=== PATIENT | female | born 1990 | race Caucasian/White ===

== ENCOUNTER 2019-02-13 11:42 | Inpatient (IN) | payer OTHER ==
[2019-02-13 13:22] VITALS: BMI 33.7
--- NOTE | 2019-02-13 15:11 | HP ---
CIWA Score - Admission Criteria [facility] Guidelines: Admission for Medically Managed Detox: Requires at least one of the followin. CIWA greater than 12 2. Seizures within the past 24 hours 3. Delirium tremens within the past 24 hours 4. Hallucinations within the past 24 hours 5. Acute intervention needed for co occurring medical disorder 6. Acute intervention needed for co occurring psychiatric disorder 7. Severe withdrawal that cannot be handled at a lower level of care (continued vomiting, continued diarrhea, abnormal vital signs) requiring intravenous medication and/or fluids 8. Admission ROS S - HPI Chief Complaint: I came for rehab for cocaine and marijuana. Allergies/Adverse Reactions: Allergies Allergy/AdvReac Type Severity Reaction Status Date / Time No Known Allergies Allergy Verified 06/16/18 14:40 History of Present Illness: 28year old female with history of asthma, depression and anxiety who came in for rehab for cocaine and marijuana. Pt is homeless now. Exam Limitations: No Limitations - Ebola screening Have you traveled outside of the country in the last 21 days: No Have you had contact with anyone from an Ebola affected area: No Have you been sick,other than usual withdrawal symptoms: No Do you have a fever: No - Review of Systems Constitutional: Unintentional Wgt. Loss EENT: reports: No Symptoms Reported Respiratory: reports: No Symptoms reported Cardiac: reports: No Symptoms Reported GI: reports: Diarrhea, Poor Appetite : reports: No Symptoms Reported Musculoskeletal: reports: Joint Pain, Muscle Weakness Integumentary: reports: No Symptoms Reported Neuro: reports: Headache Endocrine: reports: No Symptoms Reported Hematology: reports: No Symptoms Reported Psychiatric: reports: Orientated x3, Anxious, Depressed Patient History - Patient Medical History Hx Anemia: Yes (Iron low) Hx Asthma: Yes (Last exacerbation 2010 - (wheeze/cough)) Hx Chronic Obstructive Pulmonary Disease (COPD): No Hx Cancer: No Hx Cardiac Disorders: No Hx Congestive Heart Failure: No Hx Hypertension: No Hx Hypercholesterolemia: No Hx Pacemaker: No HX Cerebrovascular Accident: No Hx Seizures: No Hx Dementia: No Hx Diabetes: No Hx Gastrointestinal Disorders: Yes (acid reflux) Hx Liver Disease: No Hx Genitourinary Disorders: No Hx Sexually Transmitted Disorders: No Hx Renal Disease (ESRD): No Hx Thyroid Disease: No Hx Human Immunodeficiency Virus (HIV): No (5 months ago was negative) Hx Hepatitis C: No Hx Depression: Yes (Denies suicide or violent ideation) Hx Suicide Attempt: No Hx Bipolar Disorder: No Hx Schizophrenia: No - Patient Surgical History Past Surgical History: Yes Hx Neurologic Surgery: No Hx Cataract Extraction: No Hx Cardiac Surgery: No Hx Lung Surgery: No Hx Breast Surgery: No Hx Breast Biopsy: No Hx Abdominal Surgery: Yes (gastric sleeve in 2009) Hx Appendectomy: No Hx Cholecystectomy: No Hx Genitourinary Surgery: No Hx Section: Yes (3 c-sections 2017, 2015, 2009) Hx Orthopedic Surgery: No Hx Hysterectomy: No Anesthesia Reaction: No - PPD History Date: 06/18/18 - Reproductive History Last Menstrual Period: 06/02/18 (irregular) - Smoking Cessation Smoking history: Current every day smoker Have you smoked in the past 12 months: Yes Aproximately how many cigarettes per day: 5 Hx Chewing Tobacco Use: No Initiated information on smoking cessation: Yes 'Breaking Loose' booklet given: 02/13/19 - Substances Abused Cocaine Frequency: Daily Amount used: 2bags Age of first use: 26 Date of Last Use: 02/12/19 Marijuana/Hashish Route: Smoking Frequency: Daily Amount used: 1blunt Age of first use: 28 Date of Last Use: 02/12/19 Family Disease History - Family Disease History Family Disease History: Diabetes: Father, Heart Disease: Grandparent (murmurs/ irreg heart beat, breast cancer), Mother (murmurs/irreg heart beat, asthma), CA : Grandparent, Respiratory: Mother, Brother (asthma) Admission Physical Exam S - Vital Signs Vital Signs: Vital Signs - 24 hr 02/13/19 13:20 Temperature 97.5 F L Pulse Rate 84 Respiratory 20 Rate Blood Pressure 125/76 - Physical General Appearance: Yes: Appropriately Dressed HEENTM: Yes: EOMI, CARLOS, Pharynx Normal Respiratory: Yes: Within Normal Limits Neck: Yes: Within Normal Limits, No masses,lesions,Nodules, Supple Breast: Yes: Breast Exam Deferred Cardiology: Yes: Within Normal Limits, Regular Rhythm, Regular Rate, S1, S2 Abdominal: Yes: Within Normal Limits, Normal Bowel Sounds, Non Tender, Soft Genitourinary: Yes: Within Normal Limits Musculoskeletal: Yes: Muscle Pain Extremities: Yes: Within Normal Limits, Normal Capillary Refill, Normal Range of Motion 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, Fully Oriented, Alert, Motor Strength 5/5 Integumentary: Yes: Within Normal Limits, Normal Color, Dry, Warm Lymphatic: Yes: Within Normal Limits Cleared for Admission [facility] - Detox or Rehab Claeared for Rehab Admission: Yes [facility] Breath Alcohol Content Breath Alcohol Content: 0 Urine Pregancy Test - Result Urine Test Results: Negative - NO Line Present Urine Drug Screen - Results Drug Screen Negative: No Urine Drug Screen Results: THC-Marijuana, ANDI-Cocaine, MTD-Methadone Inpatient Rehab Admission - Rehab Decision to Admit Inpatient rehab admission?: Yes - Initial Determination Are CD services needed?: Yes Free of communicable disease: Yes Not in need of hospitalization: No - Rehab Admission Criteria Previous failed treatment: Yes Poor recovery environment: Yes Comorbidities: Yes Lacks judgement: Yes Patient is meeting Inpatient Rehab admission criteria:: Yes
[2019-02-13] MEDS ORDERED: MAG HYDROX/AL HYDROX/SIMETH 30 ML UNIT-DOSE CUP PO PRN (15:24)
[2019-02-13] MEDS ORDERED: MAGNESIUM CITRATE 300 ML BOTTLE PO PRN (15:24)
[2019-02-13] MEDS ORDERED: P-EPHED 60MG/TRIPROLIDI 2.5MG TABLET PO PRN (15:24)
[2019-02-13] MEDS ORDERED: MAGNESIUM HYDROX 2400MG/30ML ORAL SUSPENSION 30 ML CUP PO PRN (15:24)
[2019-02-13] MEDS ORDERED: guaiFENesin 200 MG/10 ML 10 ML UNIT-DOSE CUPS PO PRN (15:24)
[2019-02-13] MEDS ORDERED: MENTHOL/PHENOL 1 EACH UD MM PRN (15:24)
[2019-02-13] MEDS: THIAMINE HCL 100 MG TABLET (FP) PO SCH (21:06)
[2019-02-13] MEDS: RANITIDINE HCL 150 MG TABLET (FP) PO SCH (21:07)
[2019-02-14] MEDS: LOPERAMIDE HCL 2 MG CAPSULE PO PRN ×2 (06:48→16:12)
[2019-02-14] MEDS: RANITIDINE HCL 150 MG TABLET (FP) PO SCH ×2 (09:50→21:47)
[2019-02-14] MEDS: NICOTINE 14 MG/24 HOURS TOPICAL PATCH TD SCH (09:50)
[2019-02-14] MEDS: PRENATAL VITAMINS W/ FOLIC ACID TABLET (FP) PO SCH (09:50)
[2019-02-14] MEDS: NICOTINE POLACRILEX 2 MG GUM BC PRN ×3 (09:51→21:47)
[2019-02-14 11:36] LABS: HEMATOCRIT 35.6 % (32.4-45.2); HEMOGLOBIN 11.9 GM/dL (10.7-15.3); MCH 27.3 pg (25.7-33.7); MCHC 33.5 g/dl (32.0-36.0); MEAN CELL VOLUME 81.4 fl (80-96); MEAN PLT VOLUME 9.6 fl (7.5-11.1); PLATELET COUNT 240 K/MM3 (134-434); RBC 4.38 M/mm3 (3.60-5.2); RDW 17.6 % (11.6-15.6); WHITE BLOOD COUNT 4.2 K/mm3 (4.0-10.0)
[2019-02-14 11:49] LABS: ALBUMIN 3.5 g/dl (3.4-5.0); ALK PHOS 79 U/L (45-117); ANION GAP 8 MMOL/L (8-16); BILIRUBIN,TOTAL 0.4 mg/dL (0.2-1); BLOOD UREA NITROGEN 13 mg/dL (7-18); CALCIUM 8.6 mg/dL (8.5-10.1); CHLORIDE 112 mmol/L (98-107); CO2 21 mmol/L (21-32); CREATININE 0.7 mg/dL (0.55-1.3); GLUCOSE,RANDOM 87 mg/dL (74-106); POTASSIUM 3.8 mmol/L (3.5-5.1); SGPT/ALT 13 U/L (13-61); SODIUM 142 mmol/L (136-145); TOT PROT 6.5 g/dl (6.4-8.2)
[2019-02-14 11:50] LABS: SGOT/AST 8 U/L (15-37)
[2019-02-14 19:56] LABS: URINE APPEARANCE CLOUDY; URINE BILIRUBIN NEGATIVE (<2.0 mg/dL); URINE COLOR YELLOW; URINE GLUCOSE (UA) NEGATIVE (NEGATIVE); URINE KETONE TRACE (NEGATIVE)
[2019-02-14 19:57] LABS: PH,URINE 5.5 (5.0-8.0); URINE LEUK ESTERASE NEGATIVE (NEGATIVE); URINE NITRITE NEGATIVE (NEGATIVE); URINE PROTEIN NEGATIVE (NEGATIVE); URINE UROBILINOGEN 0.2 mg/dL (0.2-1.0)
[2019-02-14] MEDS: THIAMINE HCL 100 MG TABLET (FP) PO SCH (21:46)
[2019-02-14] MEDS: hydrOXYzine PAMOATE 50 MG CAPSULE (FP) PO PRN (21:47)
[2019-02-15] MEDS: NICOTINE POLACRILEX 2 MG GUM BC PRN ×3 (07:24→21:22)
[2019-02-15] MEDS: PRENATAL VITAMINS W/ FOLIC ACID TABLET (FP) PO SCH (09:04)
[2019-02-15] MEDS: LOPERAMIDE HCL 2 MG CAPSULE PO PRN (09:04)
[2019-02-15] MEDS: RANITIDINE HCL 150 MG TABLET (FP) PO SCH ×2 (09:04→21:18)
[2019-02-15] MEDS: NICOTINE 14 MG/24 HOURS TOPICAL PATCH TD SCH (09:04)
[2019-02-15] MEDS ORDERED: DIPHENOXYLATE 2.5/ATROPINE.025 1 COMBO TABLET PO PRN (13:18)
--- NOTE | 2019-02-15 13:21 | PN ---
S Progress Note Note: PT C/O FREQUENT DIARRHEA WITH ABDOMINAL CRAMP, IMODIUM NOT EFFECTIVE. Vital Signs (72 hours) 02/13/19 02/14/19 02/14/19 13:20 00:30 03:30 Temperature 97.5 F L Pulse Rate 84 Respiratory 20 18 18 Rate Blood Pressure 125/76 02/14/19 02/15/19 02/15/19 07:24 00:30 03:30 Temperature 97.9 F Pulse Rate 58 L Respiratory 18 18 18 Rate Blood Pressure 129/69 02/15/19 07:02 Temperature 97.7 F Pulse Rate 69 Respiratory 18 Rate Blood Pressure 113/75 Laboratory Tests 02/14/19 02/14/19 02/14/19 07:45 07:45 07:45 WBC 4.2 RBC 4.38 Hgb 11.9 Hct 35.6 MCV 81.4 MCH 27.3 MCHC 33.5 RDW 17.6 H Plt Count 240 D MPV 9.6 Sodium 142 Potassium 3.8 Chloride 112 H Carbon Dioxide 21 Anion Gap 8 BUN 13 Creatinine 0.7 Creat Clearance w eGFR 99.64 Random Glucose 87 Calcium 8.6 Total Bilirubin 0.4 AST 8 L ALT 13 Alkaline Phosphatase 79 Total Protein 6.5 Albumin 3.5 Urine Color Urine Appearance Urine pH Ur Specific [place] Urine Protein Urine Glucose (UA) Urine Ketones Urine Blood Urine Nitrite Urine Bilirubin Urine Urobilinogen Ur Leukocyte Esterase RPR Titer Nonreactive 02/14/19 12:10 WBC RBC Hgb Hct MCV MCH MCHC RDW Plt Count MPV Sodium Potassium Chloride Carbon Dioxide Anion Gap BUN Creatinine Creat Clearance w eGFR Random Glucose Calcium Total Bilirubin AST ALT Alkaline Phosphatase Total Protein Albumin Urine Color Yellow Urine Appearance Cloudy Urine pH 5.5 Ur Specific [place] 1.027 Urine Protein Negative Urine Glucose (UA) Negative Urine Ketones Trace H Urine Blood Trace Urine Nitrite Negative Urine Bilirubin Negative Urine Urobilinogen 0.2 Ur Leukocyte Esterase Negative RPR Titer ABDOMEN:SOFT,NT, +BS PLAN:D/C IMODIUM START LOMOTIL 1 TAB PO Q8H
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
[2019-02-15] MEDS: DULoxetine HCL 60 MG CAPSULE.DR PO SCH (14:36)
[2019-02-15] MEDS: THIAMINE HCL 100 MG TABLET (FP) PO SCH (21:18)
[2019-02-15] MEDS: traZODone HCL 100 MG TABLET (FP) PO SCH (21:19)
[2019-02-15] MEDS: QUEtiapine FUMARATE 100 MG TABLET (FP) PO SCH (21:19)
[2019-02-16] MEDS: NICOTINE POLACRILEX 2 MG GUM BC PRN ×3 (10:06→21:08)
[2019-02-16] MEDS: NICOTINE 14 MG/24 HOURS TOPICAL PATCH TD SCH (10:06)
[2019-02-16] MEDS: RANITIDINE HCL 150 MG TABLET (FP) PO SCH ×2 (10:06→21:07)
[2019-02-16] MEDS: DULoxetine HCL 60 MG CAPSULE.DR PO SCH (10:06)
[2019-02-16] MEDS: PRENATAL VITAMINS W/ FOLIC ACID TABLET (FP) PO SCH (10:06)
--- NOTE | 2019-02-16 13:35 | PN ---
[facility] Progress Note Note: NO C/O DIARRHEA VERBALIZED TODAY. CONTINUE TO MONITOR IF TOTALLY RESOLVED, WILL D/C LOMOTIL AFTER 3 DAYS FROM FIRST ORDER. Vital Signs (72 hours) 02/14/19 02/14/19 02/14/19 00:30 03:30 07:24 Temperature 97.9 F Pulse Rate 58 L Respiratory 18 18 18 Rate Blood Pressure 129/69 02/15/19 02/15/19 02/15/19 00:30 03:30 07:02 Temperature 97.7 F Pulse Rate 69 Respiratory 18 18 18 Rate Blood Pressure 113/75 02/16/19 02/16/19 02/16/19 00:30 03:30 07:08 Temperature 97.2 F L Pulse Rate 58 L Respiratory 16 18 18 Rate Blood Pressure 114/73
[2019-02-16] MEDS ORDERED: PT OWN MED DRAWER 7, Y5N ONE (21:05)
[2019-02-16] MEDS: traZODone HCL 100 MG TABLET (FP) PO SCH (21:07)
[2019-02-16] MEDS: THIAMINE HCL 100 MG TABLET (FP) PO SCH (21:07)
[2019-02-16] MEDS: QUEtiapine FUMARATE 100 MG TABLET (FP) PO SCH (21:07)
[2019-02-17] MEDS: RANITIDINE HCL 150 MG TABLET (FP) PO SCH ×2 (09:43→21:24)
[2019-02-17] MEDS: DULoxetine HCL 60 MG CAPSULE.DR PO SCH (09:43)
[2019-02-17] MEDS: PRENATAL VITAMINS W/ FOLIC ACID TABLET (FP) PO SCH (09:43)
[2019-02-17] MEDS: NICOTINE 14 MG/24 HOURS TOPICAL PATCH TD SCH (09:43)
[2019-02-17] MEDS: NICOTINE POLACRILEX 2 MG GUM BC PRN ×2 (09:44→21:25)
[2019-02-17] MEDS: QUEtiapine FUMARATE 100 MG TABLET (FP) PO SCH (21:24)
[2019-02-17] MEDS: THIAMINE HCL 100 MG TABLET (FP) PO SCH (21:24)
[2019-02-17] MEDS: traZODone HCL 100 MG TABLET (FP) PO SCH (21:24)
[2019-02-18] MEDS: DULoxetine HCL 60 MG CAPSULE.DR PO SCH (10:09)
[2019-02-18] MEDS: NICOTINE 14 MG/24 HOURS TOPICAL PATCH TD SCH (10:09)
[2019-02-18] MEDS: NICOTINE POLACRILEX 2 MG GUM BC PRN ×3 (10:10→21:22)
[2019-02-18] MEDS: RANITIDINE HCL 150 MG TABLET (FP) PO SCH ×2 (10:10→21:22)
[2019-02-18] MEDS: PRENATAL VITAMINS W/ FOLIC ACID TABLET (FP) PO SCH (10:10)
[2019-02-18] MEDS: THIAMINE HCL 100 MG TABLET (FP) PO SCH (21:22)
[2019-02-18] MEDS: traZODone HCL 100 MG TABLET (FP) PO SCH (21:22)
[2019-02-18] MEDS: QUEtiapine FUMARATE 100 MG TABLET (FP) PO SCH (21:22)
[2019-02-19] MEDS: PRENATAL VITAMINS W/ FOLIC ACID TABLET (FP) PO SCH (10:19)
[2019-02-19] MEDS: DULoxetine HCL 60 MG CAPSULE.DR PO SCH (10:20)
[2019-02-19] MEDS: NICOTINE 14 MG/24 HOURS TOPICAL PATCH TD SCH (10:20)
[2019-02-19] MEDS: RANITIDINE HCL 150 MG TABLET (FP) PO SCH ×2 (10:20→21:03)
[2019-02-19] MEDS: NICOTINE POLACRILEX 2 MG GUM BC PRN (10:21)
--- NOTE | 2019-02-19 13:52 | PN ---
[facility] Progress Note Note: PT C/O DRUG CRAVINGS AND REQUESTING TO GET BACK ON SUBOXONE. TREATMENT HX BELOW. PT REPORTS SHE GOT ON METHADONE MAINTENANCE IN August,. REPORTS SHE STOPPED SUBOXONE BECAUSE WAS RECOMMENDED BY THERAPIST METHADONE WAS BETTER. PT STOPPED METHADONE AND AWOL SINCE 01/13/19 PT WAS ON METHADONE 165 MG PO DAILY BUT LAST RECEIVED METHADONE 165 MG PO ON 01/12/19 PER [facility] MEDICATION RECORD FAXED TO THIS FACILITY ON . PT STOPPED METHADONE AND AWOL SINCE 01/13/19 AND SERVICE ON "SUSP"(? SUSPENSION). PT STATES SHE DOES NOT WANT TO GO BACK TO THE PROGRAM AND DOES NOT WANT METHADONE AND WANTS TO GET BACK ON SUBOXONE. Others' Prescriptions Patient Name: Joanne Cotton Date: 1990 Address: [address] [place] [address] Sex: Female Rx Written Rx Dispensed Drug Quantity Days Supply Prescriber Name 07/03/2018 08/07/2018 suboxone 8 mg-2 mg sl film 15 5 Sonia Andujar MD 07/03/2018 07/28/2018 suboxone 8 mg-2 mg sl film 15 5 Sonia Andujar MD 07/03/2018 07/15/2018 suboxone 8 mg-2 mg sl film 15 5 Sonia Andujar MD 07/03/2018 07/11/2018 suboxone 8 mg-2 mg sl film 15 5 Sonia Andujar MD 07/03/2018 07/03/2018 suboxone 8 mg-2 mg sl film 30 10 Sonia Andujar MD Patient Name: Joanne Cotton Date: 1990 Address: [address] [place] [address] Sex: Female Rx Written Rx Dispensed Drug Quantity Days Supply Prescriber Name 05/30/2018 05/30/2018 acetaminophen-cod #2 tablet 10 2 Kiersten Araujo 04/28/2018 04/28/2018 clonazepam 0.5 mg tablet 28 28 PastorGhada Mora 04/21/2018 04/21/2018 clonazepam 0.5 mg tablet 14 7 Pastor-Trinidad Daviszabeth 04/06/2018 04/06/2018 clonazepam 1 mg tablet 21 14 PastorGhada Mora 03/20/2018 03/21/2018 buprenorphine 8 mg tablet sl 60 30 David Devlin 03/15/2018 03/15/2018 buprenorphine-naloxone 8-2 mg sl tablet 14 7 Ashley Baird MD 03/09/2018 03/09/2018 clonazepam 1 mg tablet 60 30 Pastor-Ghada Davis 02/21/2018 02/21/2018 buprenorphine-naloxone 8-2 mg sl tablet 40 20 Ashley Baird MD * - Drugs marked with an asterisk are compound drugs. If the compound drug is made up of more than one controlled substance, then each controlled substance will be a separate row in the table. COWS SCORE:12 RESIDUAL OPIOID W/S CRAVINGS PLAN:DISCUSSED WITH PT ABOUT: REPEAT DRUG SCREEN MEET WITH COUNSELOR TO SET UP AFTERCARE APPOINTMENT AFTER REHAB RESTART ON SUBOXONE PENDING DRUG SCREEN RESULT. PT AGREES TO POC
[2019-02-19] MEDS: hydrOXYzine PAMOATE 50 MG CAPSULE (FP) PO PRN (15:38)
[2019-02-19] MEDS: IBUPROFEN 400 MG TABLET (FP) PO PRN (15:38)
--- NOTE | 2019-02-19 15:50 | PN ---
[facility] COWS - Scale Resting Pulse: 1= [place] 81-100 Sweatin= Chills/Flushing Restless Observation: 3= Extraneous Movement Pupil Size: 0= Normal to Room Light Bone or Joint Aches: 2= Severe Diffuse Aches Runny Nose/ Eye Tearin= None GI Upset > 30mins: 2= Nausea/Diarrhea Tremor Observation of Outstretched Hands: 0= None Yawning Observation: 1= 1-2x During Session Anxiety or Irritability: 2=Irritable/Anxious Goose Flesh Skin: 0=Smooth Skin COWS Score: 12
[2019-02-19] MEDS: ACETAMINOPHEN 325 MG TABLET (FP) PO PRN (19:48)
[2019-02-19] MEDS: QUEtiapine FUMARATE 100 MG TABLET (FP) PO SCH (21:03)
[2019-02-19] MEDS: THIAMINE HCL 100 MG TABLET (FP) PO SCH (21:03)
[2019-02-19] MEDS: traZODone HCL 100 MG TABLET (FP) PO SCH (21:03)
[2019-02-20] MEDS: DULoxetine HCL 60 MG CAPSULE.DR PO SCH (10:06)
[2019-02-20] MEDS: PRENATAL VITAMINS W/ FOLIC ACID TABLET (FP) PO SCH (10:06)
[2019-02-20] MEDS: RANITIDINE HCL 150 MG TABLET (FP) PO SCH ×2 (10:06→21:27)
[2019-02-20] MEDS: NICOTINE 14 MG/24 HOURS TOPICAL PATCH TD SCH (10:06)
[2019-02-20] MEDS: IBUPROFEN 400 MG TABLET (FP) PO PRN ×2 (10:07→17:56)
[2019-02-20] MEDS: NICOTINE POLACRILEX 2 MG GUM BC PRN ×2 (10:08→21:28)
[2019-02-20] MEDS ORDERED: BUPRENORPHINE/NALOXONE 2 MG/0.5 MG FILM PACKET SL ONE (12:09)
[2019-02-20] MEDS: THIAMINE HCL 100 MG TABLET (FP) PO SCH (21:26)
[2019-02-20] MEDS: traZODone HCL 100 MG TABLET (FP) PO SCH (21:27)
[2019-02-20] MEDS: QUEtiapine FUMARATE 100 MG TABLET (FP) PO SCH (21:27)
[2019-02-20] MEDS: hydrOXYzine PAMOATE 50 MG CAPSULE (FP) PO PRN (21:27)
[2019-02-20] MEDS: ACETAMINOPHEN 325 MG TABLET (FP) PO PRN (21:27)
[2019-02-21] MEDS ORDERED: PT OWN MED DRAWER 7, Y5N ONE ×2 (08:52→10:35)
[2019-02-21] MEDS: ACETAMINOPHEN 325 MG TABLET (FP) PO PRN ×2 (08:58→21:04)
[2019-02-21] MEDS: NICOTINE POLACRILEX 2 MG GUM BC PRN ×2 (08:59→17:45)
[2019-02-21] MEDS: PRENATAL VITAMINS W/ FOLIC ACID TABLET (FP) PO SCH (09:47)
[2019-02-21] MEDS: NICOTINE 14 MG/24 HOURS TOPICAL PATCH TD SCH (09:47)
[2019-02-21] MEDS: RANITIDINE HCL 150 MG TABLET (FP) PO SCH ×2 (09:47→21:05)
[2019-02-21] MEDS: DULoxetine HCL 60 MG CAPSULE.DR PO SCH (09:47)
[2019-02-21] MEDS: hydrOXYzine PAMOATE 50 MG CAPSULE (FP) PO PRN ×2 (09:48→21:05)
[2019-02-21] MEDS ORDERED: BUPRENORPHINE/NALOXONE 2 MG/0.5 MG FILM PACKET SL SCH (10:00)
--- NOTE | 2019-02-21 15:47 | PN ---
[facility] COWS - Scale Resting Pulse: 0= [place] 80 or Below Sweatin= No chills or Flushing Restless Observation: 3= Extraneous Movement Pupil Size: 0= Normal to Room Light Bone or Joint Aches: 1= Mild Discomfort Runny Nose/ Eye Tearin= None GI Upset > 30mins: 2= Nausea/Diarrhea (NAUSEA) Tremor Observation of Outstretched Hands: 0= None Yawning Observation: 1= 1-2x During Session Anxiety or Irritability: 1=Feels Anxious/Irritable Goose Flesh Skin: 0=Smooth Skin COWS Score: 8 [facility] Progress Note (SOAP) Subjective: REPORTS STILL HAVING CRAVINGS WITH SOME IRRITABILITY AND SLIGHT NAUSEA. REQUESTING FOR ADJUSTMENT OF SUBOXONE DOSE. Objective: 02/21/19 15:41 Vital Signs (72 hours) 02/19/19 02/19/19 02/19/19 00:30 03:30 07:02 Temperature 98.5 F Pulse Rate 99 H Respiratory 18 18 18 Rate Blood Pressure 108/74 02/20/19 02/20/19 02/20/19 00:30 03:30 07:12 Temperature 98.1 F Pulse Rate 88 Respiratory 16 16 18 Rate Blood Pressure 111/74 02/21/19 02/21/19 02/21/19 00:30 03:30 07:08 Temperature 97.8 F Pulse Rate 65 Respiratory 18 18 18 Rate Blood Pressure 113/74 Assessment: 02/21/19 15:42 DRUG CRAVINGS Plan: INCREASE SUBOXONE TO 4 MG/1 MG SL BID GIVE SUBOXONE 2 MG/0.5 MG SL X1 NOW. MONITOR PT'S SYMPTOMS AND ADJUST NEEDED.
[2019-02-21] MEDS ORDERED: BUPRENORPHINE/NALOXONE 2 MG/0.5 MG FILM PACKET SL ONE (16:45)
[2019-02-21] MEDS: THIAMINE HCL 100 MG TABLET (FP) PO SCH (21:04)
[2019-02-21] MEDS: QUEtiapine FUMARATE 100 MG TABLET (FP) PO SCH (21:05)
[2019-02-21] MEDS: traZODone HCL 100 MG TABLET (FP) PO SCH (21:06)
[2019-02-21] MEDS: BUPRENORPHINE/NALOXONE 2 MG/0.5 MG FILM PACKET SL SCH (21:47)
[2019-02-22] MEDS: ACETAMINOPHEN 325 MG TABLET (FP) PO PRN ×3 (06:42→21:10)
[2019-02-22] MEDS: NICOTINE POLACRILEX 2 MG GUM BC PRN (08:45)
[2019-02-22] MEDS: PRENATAL VITAMINS W/ FOLIC ACID TABLET (FP) PO SCH (09:37)
[2019-02-22] MEDS: RANITIDINE HCL 150 MG TABLET (FP) PO SCH ×2 (09:37→21:10)
[2019-02-22] MEDS: hydrOXYzine PAMOATE 50 MG CAPSULE (FP) PO PRN ×2 (09:37→21:10)
[2019-02-22] MEDS: NICOTINE 14 MG/24 HOURS TOPICAL PATCH TD SCH (09:37)
[2019-02-22] MEDS: BUPRENORPHINE/NALOXONE 2 MG/0.5 MG FILM PACKET SL SCH ×2 (09:37→17:46)
[2019-02-22] MEDS: DULoxetine HCL 60 MG CAPSULE.DR PO SCH (09:37)
[2019-02-22] MEDS: IBUPROFEN 400 MG TABLET (FP) PO PRN (15:38)
[2019-02-22] MEDS: THIAMINE HCL 100 MG TABLET (FP) PO SCH (21:08)
[2019-02-22] MEDS: traZODone HCL 100 MG TABLET (FP) PO SCH (21:09)
[2019-02-22] MEDS: QUEtiapine FUMARATE 100 MG TABLET (FP) PO SCH (21:09)
[2019-02-23] MEDS: DULoxetine HCL 60 MG CAPSULE.DR PO SCH (09:45)
[2019-02-23] MEDS: PRENATAL VITAMINS W/ FOLIC ACID TABLET (FP) PO SCH (09:45)
[2019-02-23] MEDS: NICOTINE 14 MG/24 HOURS TOPICAL PATCH TD SCH (09:45)
[2019-02-23] MEDS: RANITIDINE HCL 150 MG TABLET (FP) PO SCH ×2 (09:45→21:25)
[2019-02-23] MEDS: NICOTINE POLACRILEX 2 MG GUM BC PRN ×3 (09:45→21:26)
[2019-02-23] MEDS: BUPRENORPHINE/NALOXONE 2 MG/0.5 MG FILM PACKET SL SCH ×2 (09:46→17:40)
[2019-02-23] MEDS: ACETAMINOPHEN 325 MG TABLET (FP) PO PRN ×2 (09:46→17:38)
[2019-02-23] MEDS: CYCLOBENZAPRINE HCL 10 MG TABLET (FP) PO PRN ×2 (14:45→21:25)
[2019-02-23] MEDS: LIDOCAINE 5% TOPICAL PATCH TP SCH (14:45)
[2019-02-23] MEDS: hydrOXYzine PAMOATE 50 MG CAPSULE (FP) PO PRN (19:19)
[2019-02-23] MEDS: traZODone HCL 100 MG TABLET (FP) PO SCH (21:25)
[2019-02-23] MEDS: THIAMINE HCL 100 MG TABLET (FP) PO SCH (21:25)
[2019-02-23] MEDS: QUEtiapine FUMARATE 100 MG TABLET (FP) PO SCH (21:25)
[2019-02-23] MEDS: LIDOCAINE PATCH REMOVAL MC SCH (21:26)
[2019-02-24] MEDS: PRENATAL VITAMINS W/ FOLIC ACID TABLET (FP) PO SCH (09:57)
[2019-02-24] MEDS: BUPRENORPHINE/NALOXONE 2 MG/0.5 MG FILM PACKET SL SCH ×2 (09:57→17:54)
[2019-02-24] MEDS: DULoxetine HCL 60 MG CAPSULE.DR PO SCH (09:57)
[2019-02-24] MEDS: NICOTINE 14 MG/24 HOURS TOPICAL PATCH TD SCH (09:57)
[2019-02-24] MEDS: LIDOCAINE 5% TOPICAL PATCH TP SCH (09:57)
[2019-02-24] MEDS: NICOTINE POLACRILEX 2 MG GUM BC PRN ×3 (09:57→21:04)
[2019-02-24] MEDS: RANITIDINE HCL 150 MG TABLET (FP) PO SCH ×2 (09:58→21:03)
[2019-02-24] MEDS: hydrOXYzine PAMOATE 50 MG CAPSULE (FP) PO PRN (10:00)
[2019-02-24] MEDS: CYCLOBENZAPRINE HCL 10 MG TABLET (FP) PO PRN ×2 (10:00→21:02)
[2019-02-24] MEDS: ACETAMINOPHEN 325 MG TABLET (FP) PO PRN (17:55)
[2019-02-24] MEDS: THIAMINE HCL 100 MG TABLET (FP) PO SCH (21:02)
[2019-02-24] MEDS: traZODone HCL 100 MG TABLET (FP) PO SCH (21:02)
[2019-02-24] MEDS: QUEtiapine FUMARATE 100 MG TABLET (FP) PO SCH (21:02)
[2019-02-24] MEDS: LIDOCAINE PATCH REMOVAL MC SCH (21:03)
[2019-02-25] MEDS: ACETAMINOPHEN 325 MG TABLET (FP) PO PRN ×2 (06:47→17:33)
[2019-02-25] MEDS: BUPRENORPHINE/NALOXONE 2 MG/0.5 MG FILM PACKET SL SCH ×2 (09:41→17:32)
[2019-02-25] MEDS: CYCLOBENZAPRINE HCL 10 MG TABLET (FP) PO PRN ×2 (09:41→21:11)
[2019-02-25] MEDS: PRENATAL VITAMINS W/ FOLIC ACID TABLET (FP) PO SCH (09:41)
[2019-02-25] MEDS: RANITIDINE HCL 150 MG TABLET (FP) PO SCH ×2 (09:41→21:11)
[2019-02-25] MEDS: DULoxetine HCL 60 MG CAPSULE.DR PO SCH (09:41)
[2019-02-25] MEDS: NICOTINE 14 MG/24 HOURS TOPICAL PATCH TD SCH (09:41)
[2019-02-25] MEDS: LIDOCAINE 5% TOPICAL PATCH TP SCH (09:43)
[2019-02-25] MEDS: NICOTINE POLACRILEX 2 MG GUM BC PRN ×2 (09:43→17:35)
[2019-02-25] MEDS: hydrOXYzine PAMOATE 50 MG CAPSULE (FP) PO PRN (17:33)
[2019-02-25] MEDS: QUEtiapine FUMARATE 100 MG TABLET (FP) PO SCH (21:11)
[2019-02-25] MEDS: THIAMINE HCL 100 MG TABLET (FP) PO SCH (21:11)
[2019-02-25] MEDS: traZODone HCL 100 MG TABLET (FP) PO SCH (21:11)
[2019-02-25] MEDS: LIDOCAINE PATCH REMOVAL MC SCH (21:11)
[2019-02-25] MEDS: IBUPROFEN 400 MG TABLET (FP) PO PRN (21:12)
[2019-02-26] MEDS: PRENATAL VITAMINS W/ FOLIC ACID TABLET (FP) PO SCH (09:39)
[2019-02-26] MEDS: NICOTINE 14 MG/24 HOURS TOPICAL PATCH TD SCH (09:39)
[2019-02-26] MEDS: DULoxetine HCL 60 MG CAPSULE.DR PO SCH (09:39)
[2019-02-26] MEDS: LIDOCAINE 5% TOPICAL PATCH TP SCH (09:39)
[2019-02-26] MEDS: RANITIDINE HCL 150 MG TABLET (FP) PO SCH ×2 (09:40→21:19)
[2019-02-26] MEDS: CYCLOBENZAPRINE HCL 10 MG TABLET (FP) PO PRN ×2 (09:45→21:19)
[2019-02-26] MEDS: hydrOXYzine PAMOATE 50 MG CAPSULE (FP) PO PRN ×2 (09:45→21:19)
[2019-02-26] MEDS: BUPRENORPHINE/NALOXONE 8 MG/2 MG FILM PACKET SL SCH ×2 (11:05→17:45)
[2019-02-26] MEDS: NICOTINE POLACRILEX 2 MG GUM BC PRN ×2 (12:39→18:03)
[2019-02-26] MEDS: MELATONIN 5 MG TABLETS PO PRN (21:19)
[2019-02-26] MEDS: traZODone HCL 100 MG TABLET (FP) PO SCH (21:19)
[2019-02-26] MEDS: QUEtiapine FUMARATE 100 MG TABLET (FP) PO SCH (21:19)
[2019-02-26] MEDS: THIAMINE HCL 100 MG TABLET (FP) PO SCH (21:19)
[2019-02-26] MEDS: LIDOCAINE PATCH REMOVAL MC SCH (21:20)
[2019-02-26] MEDS ORDERED: COLLOIDAL OATMEAL 1 BAR EACH TP PRN (23:29)
[2019-02-27] MEDS: CYCLOBENZAPRINE HCL 10 MG TABLET (FP) PO PRN (08:42)
[2019-02-27] MEDS: NICOTINE POLACRILEX 2 MG GUM BC PRN (08:43)
[2019-02-27] MEDS: DULoxetine HCL 60 MG CAPSULE.DR PO SCH (09:39)
[2019-02-27] MEDS: NICOTINE 14 MG/24 HOURS TOPICAL PATCH TD SCH (09:40)
[2019-02-27] MEDS: PRENATAL VITAMINS W/ FOLIC ACID TABLET (FP) PO SCH (09:40)
[2019-02-27] MEDS: RANITIDINE HCL 150 MG TABLET (FP) PO SCH ×2 (09:40→21:42)
[2019-02-27] MEDS: LIDOCAINE 5% TOPICAL PATCH TP SCH (09:40)
[2019-02-27] MEDS: BUPRENORPHINE/NALOXONE 8 MG/2 MG FILM PACKET SL SCH ×2 (09:41→17:42)
[2019-02-27] MEDS: hydrOXYzine PAMOATE 50 MG CAPSULE (FP) PO PRN (09:42)
--- NOTE | 2019-02-27 10:05 | PN ---
Psychiatric Progress Note Vital Signs: Vital Signs Period Temp Pulse Resp BP Sys/Estrada Pulse Ox Last 24 Hr 98.2 F 81 16-18 98/65 Date of Session: 02/27/19 Chief Complaint:: "I can't sleep at night." HPI: Patient reports h/o insomnia and has had difficulty sleeping through the night. ROS: Significant for anemia, bronchial asthma, GERD and a history of abdominal surgery (gastric sleeve in 2010) + three sections Current Medications: Active Medications Generic Name Dose Route Start Last Admin Trade Name Freq PRN Reason Stop Dose Admin Acetaminophen 650 mg 02/13/19 15:24 02/25/19 17:33 Tylenol - PO 650 mg Q4H PRN Administration FEVER Al Hydroxide/Mg Hydroxide 30 ml 02/13/19 15:24 Mylanta Oral Suspension - PO Q6H PRN DYSPEPSIA Buprenorphine/Naloxone 1 each 02/26/19 10:00 02/27/19 09:41 Suboxone 8mg/2mg Sl Film - SL 03/05/19 09:59 1 each BID@1000,1800 SALVATORE Administration Colloidal Oatmeal 1 applic 02/26/19 23:29 Aveeno Soap - TP DAILY PRN HYGEINE Cyclobenzaprine HCl 10 mg 02/23/19 14:09 02/27/19 08:42 Flexeril - PO 10 mg TID PRN Administration MUSCLE SPASMS Duloxetine HCl 60 mg 02/15/19 14:15 02/27/19 09:39 Cymbalta - PO 60 mg DAILY SALVATORE Administration Eucalyptus/Menthol/Phenol/Sorbitol 1 each 02/13/19 15:24 Cepastat Lozenge - MM Q4H PRN SORE THROAT Guaifenesin 10 ml 02/13/19 15:24 Robitussin - PO Q6H PRN COUGH Hydroxyzine Pamoate 50 mg 02/13/19 15:24 02/27/19 09:42 Vistaril - PO 50 mg Q4H PRN Administration AGITATION Ibuprofen 400 mg 02/13/19 15:24 02/25/19 21:12 Motrin - PO 400 mg Q6H PRN Administration Pain level 4-6 Lidocaine 1 patch 02/23/19 14:15 02/27/19 09:40 Lidoderm Patch - TP 1 patch DAILY SALVATORE Administration Magnesium Citrate 300 ml 02/13/19 15:24 Citroma - PO Q48H PRN CONSTIPATION Magnesium Hydroxide 30 ml 02/13/19 15:24 Milk Of Magnesia - PO DAILY PRN CONSTIPATION Melatonin 5 mg 02/13/19 22:00 02/26/19 21:19 Melatonin PO 5 mg HS PRN Administration INSOMNIA Miscellaneous 1 each 02/23/19 22:00 02/26/19 21:20 Lidoderm Patch Removal MC 1 each DAILY@2200 SALVATORE Administration Nicotine 14 mg 02/14/19 10:00 02/27/19 09:40 Nicoderm Patch - TD 14 mg DAILY SALVATORE Administration Nicotine Polacrilex 2 mg 02/13/19 15:24 02/27/19 08:43 Nicorette Gum - BC 2 mg Q2H PRN Administration NICOTINE REPLACEMENT RX Multivit/Folic Acid/Iron 1 tab 02/14/19 10:00 02/27/19 09:40 Vitamins (Sjr) - PO 1 tab DAILY SALVATORE Administration Pseudoephedrine/Triprolidine 1 combo 02/13/19 15:24 Actifed - PO TID PRN NASAL CONGESTION Quetiapine Fumarate 100 mg 02/15/19 22:00 02/26/19 21:19 Seroquel - PO 100 mg HS SALVATORE Administration Ranitidine HCl 150 mg 02/13/19 22:00 02/27/19 09:40 Zantac - PO 150 mg BID SALVATORE Administration Thiamine HCl 100 mg 02/13/19 22:00 02/26/19 21:19 Vitamin B1 - PO 100 mg HS SALVATORE Administration Trazodone HCl 100 mg 02/15/19 22:00 02/26/19 21:19 Desyrel - PO 100 mg HS SALVATORE Administration Medication(s) Change(s): Belsomra 10mg qhs prn. Current Side Effect: No Lab tests ordered: No Lab tests reviewed: Yes Provider note:: Patient reports poor sleep. Dr. Small's note read and appreciated. Patient is currently prescribed seroquel 100mg HS + trazodone 100mg HS. Patient reports poor sleep the previous several nights. Will order Belsomra 10mg HS. Patient also requesting to have her medication scheduled at 21 :00 as she reports falling asleep before 9pm when at home. Will reorder Seroquel 100mg + trazodone 100mg + Belsomra 10mg prn for 21:00. Psychoeducation and sleep hygiene discussed. Benefits and side effects discussed. Verbal consent given. Total face to face time:: 25 Mental Status Exam - Mental Status Exam Alert and Oriented to: Time, Place, Person Cognitive Function: Good Patient Appearance: Well Groomed Mood: Euthymic Affect: Mood Congruent Patient Behavior: Cooperative Speech Pattern: Appropriate Voice Loudness: Normal Thought Process: Intact, Goal Oriented Thought Disorder: Not Present Hallucinations: Denies Suicidal Ideation: Denies Homicidal Ideation: Denies Insight/Judgement: Poor Sleep: Poorly Appetite: Fair Muscle strength/Tone: Normal Gait/Station: Normal Psychiatric Treatment Plan - Problem List (1) Substance-induced anxiety disorder Current Visit: Yes (2) Substance-induced sleep disorder Current Visit: Yes (3) MDD (major depressive disorder), recurrent episode, moderate Current Visit: Yes (4) PTSD (post-traumatic stress disorder) Current Visit: Yes (5) Nicotine dependence Current Visit: Yes Qualifiers: Nicotine product type: cigarettes Substance use status: in withdrawal Qualified Code(s): F17.213 - Nicotine dependence, cigarettes, with withdrawal
[2019-02-27] MEDS: traZODone HCL 100 MG TABLET (FP) PO SCH (20:08)
[2019-02-27] MEDS: QUEtiapine FUMARATE 100 MG TABLET (FP) PO SCH (20:08)
[2019-02-27] MEDS: SUVOREXANT 10 MG TABLET PO PRN (20:09)
[2019-02-27] MEDS: LIDOCAINE PATCH REMOVAL MC SCH (21:42)
[2019-02-27] MEDS: THIAMINE HCL 100 MG TABLET (FP) PO SCH (21:42)
[2019-02-27] MEDS ORDERED: SUVOREXANT 10 MG TABLET PO PRN (22:00)
[2019-02-28] MEDS: NICOTINE 14 MG/24 HOURS TOPICAL PATCH TD SCH (09:57)
[2019-02-28] MEDS: BUPRENORPHINE/NALOXONE 8 MG/2 MG FILM PACKET SL SCH ×2 (09:57→17:44)
[2019-02-28] MEDS: LIDOCAINE 5% TOPICAL PATCH TP SCH (09:57)
[2019-02-28] MEDS: hydrOXYzine PAMOATE 50 MG CAPSULE (FP) PO PRN (09:59)
[2019-02-28] MEDS: PRENATAL VITAMINS W/ FOLIC ACID TABLET (FP) PO SCH (09:59)
[2019-02-28] MEDS: DULoxetine HCL 60 MG CAPSULE.DR PO SCH (09:59)
[2019-02-28] MEDS: CYCLOBENZAPRINE HCL 10 MG TABLET (FP) PO PRN ×2 (09:59→20:04)
[2019-02-28] MEDS: RANITIDINE HCL 150 MG TABLET (FP) PO SCH ×2 (09:59→20:05)
[2019-02-28] MEDS: NICOTINE POLACRILEX 2 MG GUM BC PRN ×2 (10:00→14:04)
[2019-02-28] MEDS: MINERAL OIL/PETROLAT/WATER TOPICAL CREAM 113 GM JAR TP PRN (14:05)
[2019-02-28] MEDS: BENZOCAINE 20 % GEL TUBE MM PRN (14:06)
[2019-02-28] MEDS: ACETAMINOPHEN 325 MG TABLET (FP) PO PRN (15:10)
[2019-02-28] MEDS: SUVOREXANT 10 MG TABLET PO PRN (20:04)
[2019-02-28] MEDS: traZODone HCL 100 MG TABLET (FP) PO SCH (20:04)
[2019-02-28] MEDS: QUEtiapine FUMARATE 100 MG TABLET (FP) PO SCH (20:04)
[2019-02-28] MEDS: THIAMINE HCL 100 MG TABLET (FP) PO SCH (20:05)
[2019-02-28] MEDS: LIDOCAINE PATCH REMOVAL MC SCH (23:55)
[2019-03-01] MEDS: DULoxetine HCL 60 MG CAPSULE.DR PO SCH (09:49)
[2019-03-01] MEDS: LIDOCAINE 5% TOPICAL PATCH TP SCH (09:49)
[2019-03-01] MEDS: NICOTINE 14 MG/24 HOURS TOPICAL PATCH TD SCH (09:49)
[2019-03-01] MEDS: RANITIDINE HCL 150 MG TABLET (FP) PO SCH ×2 (09:49→19:59)
[2019-03-01] MEDS: BUPRENORPHINE/NALOXONE 8 MG/2 MG FILM PACKET SL SCH ×2 (09:49→17:42)
[2019-03-01] MEDS: PRENATAL VITAMINS W/ FOLIC ACID TABLET (FP) PO SCH (09:49)
[2019-03-01] MEDS: CYCLOBENZAPRINE HCL 10 MG TABLET (FP) PO PRN ×2 (09:50→17:43)
[2019-03-01] MEDS: hydrOXYzine PAMOATE 50 MG CAPSULE (FP) PO PRN ×2 (09:50→17:43)
[2019-03-01] MEDS: NICOTINE POLACRILEX 2 MG GUM BC PRN ×3 (09:52→17:44)
[2019-03-01] MEDS: THIAMINE HCL 100 MG TABLET (FP) PO SCH (19:58)
[2019-03-01] MEDS: traZODone HCL 100 MG TABLET (FP) PO SCH (19:59)
[2019-03-01] MEDS: QUEtiapine FUMARATE 100 MG TABLET (FP) PO SCH (19:59)
[2019-03-01] MEDS ORDERED: SUVOREXANT 10 MG TABLET PO SCH (21:00)
[2019-03-01] MEDS: LIDOCAINE PATCH REMOVAL MC SCH (23:45)
[2019-03-02] MEDS: CYCLOBENZAPRINE HCL 10 MG TABLET (FP) PO PRN ×3 (07:40→20:01)
[2019-03-02] MEDS: hydrOXYzine PAMOATE 50 MG CAPSULE (FP) PO PRN ×2 (07:40→17:46)
[2019-03-02] MEDS: NICOTINE POLACRILEX 2 MG GUM BC PRN ×3 (07:40→17:44)
[2019-03-02] MEDS: NICOTINE 14 MG/24 HOURS TOPICAL PATCH TD SCH (09:56)
[2019-03-02] MEDS: BUPRENORPHINE/NALOXONE 8 MG/2 MG FILM PACKET SL SCH ×2 (09:57→17:44)
[2019-03-02] MEDS: MINERAL OIL/PETROLAT/WATER TOPICAL CREAM 113 GM JAR TP PRN (09:57)
[2019-03-02] MEDS: LIDOCAINE 5% TOPICAL PATCH TP SCH (09:57)
[2019-03-02] MEDS: DULoxetine HCL 60 MG CAPSULE.DR PO SCH (09:58)
[2019-03-02] MEDS: RANITIDINE HCL 150 MG TABLET (FP) PO SCH ×2 (09:58→20:00)
[2019-03-02] MEDS: PRENATAL VITAMINS W/ FOLIC ACID TABLET (FP) PO SCH (09:58)
--- NOTE | 2019-03-02 10:36 | PN ---
Psychiatric Progress Note Vital Signs: Vital Signs Period Temp Pulse Resp BP Sys/Estrada Pulse Ox Last 24 Hr 98.2 F 71 16-18 104/69 Date of Session: 03/02/19 Chief Complaint:: "I fall asleep but i can't sleep through the night." HPI: Patient's sleep has slightly improved but continues to wake up in the middle of the night. ROS: Significant for anemia, bronchial asthma, GERD and a history of abdominal surgery (gastric sleeve in 2009) + three sections Current Medications: Active Medications Generic Name Dose Route Start Last Admin Trade Name Freq PRN Reason Stop Dose Admin Acetaminophen 650 mg 02/13/19 15:24 02/28/19 15:10 Tylenol - PO 650 mg Q4H PRN Administration FEVER Al Hydroxide/Mg Hydroxide 30 ml 02/13/19 15:24 Mylanta Oral Suspension - PO Q6H PRN DYSPEPSIA Benzocaine 1 applic 02/28/19 10:24 02/28/19 14:06 Anbesol - MM 1 applic Q6H PRN Administration FOR TOOTHACHE Buprenorphine/Naloxone 1 each 02/26/19 10:00 03/02/19 09:57 Suboxone 8mg/2mg Sl Film - SL 03/05/19 09:59 1 each BID@1000,1800 SALVATORE Administration Colloidal Oatmeal 1 applic 02/26/19 23:29 02/28/19 10:00 Aveeno Soap - TP 1 applic DAILY PRN Administration HYGEINE Cyclobenzaprine HCl 10 mg 02/23/19 14:09 03/02/19 07:40 Flexeril - PO 10 mg TID PRN Administration MUSCLE SPASMS Duloxetine HCl 60 mg 02/15/19 14:15 03/02/19 09:58 Cymbalta - PO 60 mg DAILY SALVATORE Administration Eucalyptus/Menthol/Phenol/Sorbitol 1 each 02/13/19 15:24 Cepastat Lozenge - MM Q4H PRN SORE THROAT Guaifenesin 10 ml 02/13/19 15:24 Robitussin - PO Q6H PRN COUGH Hydroxyzine Pamoate 50 mg 02/13/19 15:24 03/02/19 07:40 Vistaril - PO 50 mg Q4H PRN Administration AGITATION Ibuprofen 400 mg 02/13/19 15:24 02/25/19 21:12 Motrin - PO 400 mg Q6H PRN Administration Pain level 4-6 Lidocaine 1 patch 02/23/19 14:15 03/02/19 09:57 Lidoderm Patch - TP 1 patch DAILY SALVATORE Administration Magnesium Citrate 300 ml 02/13/19 15:24 Citroma - PO Q48H PRN CONSTIPATION Magnesium Hydroxide 30 ml 02/13/19 15:24 Milk Of Magnesia - PO DAILY PRN CONSTIPATION Melatonin 5 mg 02/13/19 22:00 02/26/19 21:19 Melatonin PO 5 mg HS PRN Administration INSOMNIA Miscellaneous 1 each 02/23/19 22:00 03/01/19 23:45 Lidoderm Patch Removal MC 1 each DAILY@2199 SALVATORE Administration Multi-Ingredient Lotion 1 applic 02/28/19 10:26 03/02/19 09:57 Eucerin (Small Jar) - TP 1 applic DAILY PRN Administration DRY SKIN Nicotine 14 mg 02/14/19 10:00 03/02/19 09:56 Nicoderm Patch - TD 14 mg DAILY SALVATORE Administration Nicotine Polacrilex 2 mg 02/13/19 15:24 03/02/19 10:00 Nicorette Gum - BC 2 mg Q2H PRN Administration NICOTINE REPLACEMENT RX Multivit/Folic Acid/Iron 1 tab 02/14/19 10:00 03/02/19 09:58 Vitamins (Sjr) - PO 1 tab DAILY SALVATORE Administration Pseudoephedrine/Triprolidine 1 combo 02/13/19 15:24 Actifed - PO TID PRN NASAL CONGESTION Quetiapine Fumarate 100 mg 02/27/19 21:00 03/01/19 19:59 Seroquel - PO 100 mg HS@2099 SALVATORE Administration Ranitidine HCl 150 mg 02/28/19 20:00 03/02/19 09:58 Zantac - PO 150 mg BID@ SALVATORE Administration Suvorexant 10 mg 03/01/19 21:00 03/01/19 19:59 Belsomra PO 03/08/19 20:59 10 mg HS@2099 SALVATORE Administration Thiamine HCl 100 mg 02/28/19 20:00 03/01/19 19:58 Vitamin B1 - PO 100 mg DAILY@1999 SALVATORE Administration Trazodone HCl 100 mg 02/27/19 21:00 03/01/19 19:59 Desyrel - PO 100 mg HS@2100 SALVATORE Administration Medication(s) Change(s): Will d/c belsomra 10mg and order Belsomra 15mg Current Side Effect: No Lab tests ordered: No Lab tests reviewed: Yes Provider note:: Belsomra 10mg was ordered on 02/27/19 after patient reported difficulty sleeping throughout the night. Patient states the medication has helped her fall asleep but she continues to awaken in the middle of the night. Will d/c belsomra 10mg and order Belsomra 15mg starting tonight. Benefits and side effects discussed. Patient educated on the importance of proper sleep hygiene. Verbal consent given. Total face to face time:: 25 Mental Status Exam - Mental Status Exam Alert and Oriented to: Time, Place, Person Cognitive Function: Good Patient Appearance: Well Groomed Mood: Euthymic Affect: Appropriate Patient Behavior: Appropriate, Cooperative Speech Pattern: Appropriate Voice Loudness: Normal Thought Process: Goal Oriented Thought Disorder: Not Present Hallucinations: Denies Suicidal Ideation: Denies Homicidal Ideation: Denies Insight/Judgement: Poor Sleep: Poorly Appetite: Fair Muscle strength/Tone: Normal Gait/Station: Normal Psychiatric Treatment Plan - Problem List (1) Substance-induced anxiety disorder Current Visit: Yes (2) Substance-induced sleep disorder Current Visit: Yes (3) MDD (major depressive disorder), recurrent episode, moderate Current Visit: Yes (4) PTSD (post-traumatic stress disorder) Current Visit: Yes (5) Nicotine dependence Current Visit: Yes Qualifiers: Nicotine product type: cigarettes Substance use status: in withdrawal Qualified Code(s): F17.213 - Nicotine dependence, cigarettes, with withdrawal
[2019-03-02] MEDS: THIAMINE HCL 100 MG TABLET (FP) PO SCH (19:59)
[2019-03-02] MEDS: QUEtiapine FUMARATE 100 MG TABLET (FP) PO SCH (20:00)
[2019-03-02] MEDS: traZODone HCL 100 MG TABLET (FP) PO SCH (20:00)
[2019-03-02] MEDS: MELATONIN 5 MG TABLETS PO PRN (20:01)
[2019-03-02] MEDS: SUVOREXANT 15 MG TABLET PO SCH (20:02)
[2019-03-02] MEDS ORDERED: SUVOREXANT 10 MG TABLET PO SCH (21:00)
[2019-03-02] MEDS: LIDOCAINE PATCH REMOVAL MC SCH (23:14)
[2019-03-03] MEDS ORDERED: PT OWN MED DRAWER 7, Y5N ONE (03:14)
[2019-03-03] MEDS: IBUPROFEN 400 MG TABLET (FP) PO PRN ×2 (03:14→14:05)
[2019-03-03] MEDS: BENZOCAINE 20 % GEL TUBE MM PRN ×2 (03:15→14:06)
[2019-03-03] MEDS: NICOTINE 14 MG/24 HOURS TOPICAL PATCH TD SCH (09:40)
[2019-03-03] MEDS: LIDOCAINE 5% TOPICAL PATCH TP SCH (09:40)
[2019-03-03] MEDS: RANITIDINE HCL 150 MG TABLET (FP) PO SCH ×2 (09:41→19:58)
[2019-03-03] MEDS: BUPRENORPHINE/NALOXONE 8 MG/2 MG FILM PACKET SL SCH ×2 (09:41→17:32)
[2019-03-03] MEDS: PRENATAL VITAMINS W/ FOLIC ACID TABLET (FP) PO SCH (09:41)
[2019-03-03] MEDS: DULoxetine HCL 60 MG CAPSULE.DR PO SCH (09:41)
[2019-03-03] MEDS: hydrOXYzine PAMOATE 50 MG CAPSULE (FP) PO PRN ×2 (09:42→20:00)
[2019-03-03] MEDS: CYCLOBENZAPRINE HCL 10 MG TABLET (FP) PO PRN ×2 (09:42→20:00)
[2019-03-03] MEDS: NICOTINE POLACRILEX 2 MG GUM BC PRN ×3 (10:27→20:01)
[2019-03-03] MEDS: ACETAMINOPHEN 325 MG TABLET (FP) PO PRN (16:43)
[2019-03-03] MEDS: THIAMINE HCL 100 MG TABLET (FP) PO SCH (19:58)
[2019-03-03] MEDS: QUEtiapine FUMARATE 100 MG TABLET (FP) PO SCH (20:01)
[2019-03-03] MEDS: traZODone HCL 100 MG TABLET (FP) PO SCH (20:01)
[2019-03-03] MEDS: SUVOREXANT 15 MG TABLET PO SCH (20:01)
[2019-03-03] MEDS: LIDOCAINE PATCH REMOVAL MC SCH (21:47)
[2019-03-04] MEDS: DULoxetine HCL 60 MG CAPSULE.DR PO SCH (09:44)
[2019-03-04] MEDS: NICOTINE 14 MG/24 HOURS TOPICAL PATCH TD SCH (09:44)
[2019-03-04] MEDS: PRENATAL VITAMINS W/ FOLIC ACID TABLET (FP) PO SCH (09:44)
[2019-03-04] MEDS: LIDOCAINE 5% TOPICAL PATCH TP SCH (09:44)
[2019-03-04] MEDS: RANITIDINE HCL 150 MG TABLET (FP) PO SCH ×2 (09:45→19:57)
[2019-03-04] MEDS: BUPRENORPHINE/NALOXONE 8 MG/2 MG FILM PACKET SL SCH ×2 (09:45→17:46)
[2019-03-04] MEDS: CYCLOBENZAPRINE HCL 10 MG TABLET (FP) PO PRN ×2 (09:46→19:59)
[2019-03-04] MEDS: NICOTINE POLACRILEX 2 MG GUM BC PRN ×3 (09:46→19:16)
[2019-03-04] MEDS: hydrOXYzine PAMOATE 50 MG CAPSULE (FP) PO PRN ×2 (09:46→19:58)
[2019-03-04] MEDS: ACETAMINOPHEN 325 MG TABLET (FP) PO PRN (17:45)
[2019-03-04] MEDS: THIAMINE HCL 100 MG TABLET (FP) PO SCH (19:57)
[2019-03-04] MEDS: traZODone HCL 100 MG TABLET (FP) PO SCH (20:00)
[2019-03-04] MEDS: QUEtiapine FUMARATE 100 MG TABLET (FP) PO SCH (20:00)
[2019-03-04] MEDS: SUVOREXANT 15 MG TABLET PO SCH (20:00)
[2019-03-04] MEDS: LIDOCAINE PATCH REMOVAL MC SCH (21:21)
[2019-03-05] MEDS: ACETAMINOPHEN 325 MG TABLET (FP) PO PRN (08:55)
[2019-03-05] MEDS: NICOTINE POLACRILEX 2 MG GUM BC PRN (08:55)
[2019-03-05] MEDS: NICOTINE 14 MG/24 HOURS TOPICAL PATCH TD SCH (09:34)
[2019-03-05] MEDS: LIDOCAINE 5% TOPICAL PATCH TP SCH (09:34)
[2019-03-05] MEDS: PRENATAL VITAMINS W/ FOLIC ACID TABLET (FP) PO SCH (09:35)
[2019-03-05] MEDS: RANITIDINE HCL 150 MG TABLET (FP) PO SCH ×2 (09:35→20:15)
[2019-03-05] MEDS: DULoxetine HCL 60 MG CAPSULE.DR PO SCH (09:35)
[2019-03-05] MEDS: hydrOXYzine PAMOATE 50 MG CAPSULE (FP) PO PRN ×2 (09:37→17:34)
[2019-03-05] MEDS: CYCLOBENZAPRINE HCL 10 MG TABLET (FP) PO PRN ×2 (09:37→17:37)
--- NOTE | 2019-03-05 10:07 | PN ---
[facility] Progress Note Note: SUBOXONE 8MG/2MG SL BID RENEWED X 7 DAYS. ALERT O X 3. OOB AMBULATING WITH STEADY GAIT. NAD. Vital Signs - 24 hr 03/05/19 03/05/19 03:30 07:06 Temperature 98.6 F Pulse Rate 79 Respiratory 18 18 Rate Blood Pressure 102/66
[2019-03-05] MEDS ORDERED: BUPRENORPHINE/NALOXONE 8 MG/2 MG FILM PACKET SL ONE (10:35)
--- NOTE | 2019-03-05 14:24 | PN ---
[facility] Progress Note Note: Patient is scheduled for discharge tomorrow. Script for 30 days supply of medications(Cymbalta, Seroquel, Trazadone) will be electronically transmitted to [facility] at [address] [place], [place] [id number]
[2019-03-05] MEDS: BUPRENORPHINE/NALOXONE 8 MG/2 MG FILM PACKET SL SCH (17:34)
[2019-03-05] MEDS: THIAMINE HCL 100 MG TABLET (FP) PO SCH (20:14)
[2019-03-05] MEDS: traZODone HCL 100 MG TABLET (FP) PO SCH (20:15)
[2019-03-05] MEDS: QUEtiapine FUMARATE 100 MG TABLET (FP) PO SCH (20:19)
[2019-03-05] MEDS: LIDOCAINE PATCH REMOVAL MC SCH (23:22)
[2019-03-06 07:23] VITALS: TEMP 98.1
[2019-03-06] MEDS ORDERED: PT OWN MED DRAWER 7, Y5N ONE (08:51)
[2019-03-06] MEDS: BUPRENORPHINE/NALOXONE 8 MG/2 MG FILM PACKET SL SCH (09:00)
[2019-03-06] MEDS: NICOTINE 14 MG/24 HOURS TOPICAL PATCH TD SCH (09:00)
[2019-03-06] MEDS: LIDOCAINE 5% TOPICAL PATCH TP SCH (09:00)
[2019-03-06] MEDS: RANITIDINE HCL 150 MG TABLET (FP) PO SCH (09:01)
[2019-03-06] MEDS: PRENATAL VITAMINS W/ FOLIC ACID TABLET (FP) PO SCH (09:01)
[2019-03-06] MEDS: DULoxetine HCL 60 MG CAPSULE.DR PO SCH (09:01)
[2019-03-06] MEDS: hydrOXYzine PAMOATE 50 MG CAPSULE (FP) PO PRN (09:02)
[2019-03-06 09:26] VITALS: BP 110/73; PULSE 106
--- NOTE | 2019-03-06 11:58 | PN ---
[facility] Progress Note Note: PT COMPLETED REHAB AND DISCHARGED TODAY AND REFERRED TO [facility] AT [facility] ON [place], [place]. PT ALSO REPORTS SHE HAS A PCP DR. LLANOS AT [facility] ON [address] [place] [address] FOR MEDICAL MANAGEMENT. COURTESY DOSE SUBOXONE RX ELECTRONICALLY SENT TO [facility] FOR BLOCKER HEATED METAL FORMS TODAY. PT IS ALERT O X 3. DENIES S/H/I. Home Medications Medication Instructions Recorded Sertraline HCl [Zoloft -] 200 mg PO DAILY 08/25/16 Omeprazole 20 mg PO DAILY 06/16/18 Duloxetine HCl [Cymbalta -] 60 mg PO DAILY #30 capsule. 03/05/19 Duloxetine HCl [Cymbalta] 60 mg PO DAILY #30 capsule. 03/05/19 Quetiapine Fumarate [Seroquel] 100 mg PO HS #30 tablet 03/05/19 Quetiapine Fumarate [Seroquel] 100 mg PO HS #30 tablet 03/05/19 traZODone HCL [Desyrel -] 100 mg PO HS@2100 #30 tablet 03/05/19 traZODone HCL [Trazodone HCl] 100 mg PO HS #30 tablet 03/05/19 Buprenorphine/Naloxone [Suboxone 1 each SL DAILY #14 packet MDD 2 03/06/19 8Mg/2Mg Sl Film -] Vital Signs - 24 hr 03/06/19 03/06/19 03/06/19 00:30 03:30 07:23 Temperature 98.1 F Pulse Rate 71 Respiratory 16 16 18 Rate Blood Pressure 118/78 03/06/19 09:26 Temperature Pulse Rate 106 H Respiratory 17 Rate Blood Pressure 110/73 Laboratory Tests 02/14/19 02/14/19 02/14/19 07:45 07:45 07:45 WBC 4.2 RBC 4.38 Hgb 11.9 Hct 35.6 MCV 81.4 MCH 27.3 MCHC 33.5 RDW 17.6 H Plt Count 240 D MPV 9.6 Sodium 142 Potassium 3.8 Chloride 112 H Carbon Dioxide 21 Anion Gap 8 BUN 13 Creatinine 0.7 Creat Clearance w eGFR 99.64 Random Glucose 87 Calcium 8.6 Total Bilirubin 0.4 AST 8 L ALT 13 Alkaline Phosphatase 79 Total Protein 6.5 Albumin 3.5 Urine Color Urine Appearance Urine pH Ur Specific [place] Urine Protein Urine Glucose (UA) Urine Ketones Urine Blood Urine Nitrite Urine Bilirubin Urine Urobilinogen Ur Leukocyte Esterase POC Urine HCG, Qual RPR Titer Nonreactive 02/14/19 02/21/19 12:10 13:27 WBC RBC Hgb Hct MCV MCH MCHC RDW Plt Count MPV Sodium Potassium Chloride Carbon Dioxide Anion Gap BUN Creatinine Creat Clearance w eGFR Random Glucose Calcium Total Bilirubin AST ALT Alkaline Phosphatase Total Protein Albumin Urine Color Yellow Urine Appearance Cloudy Urine pH 5.5 Ur Specific [place] 1.027 Urine Protein Negative Urine Glucose (UA) Negative Urine Ketones Trace H Urine Blood Trace Urine Nitrite Negative Urine Bilirubin Negative Urine Urobilinogen 0.2 Ur Leukocyte Esterase Negative POC Urine HCG, Qual Negative RPR Titer NAD MEDICALLY STABLE. PLAN:FOLLOW UP WITH [facility] RECOMMENDED. FOLLOW UP WITH PCP FOR MEDICAL MANAGEMENT NEEDED.
== END 2019-03-06 09:04 | disposition home or self-care (01) | DRG 772 ==
LOC: YASAS 11:42 → Y3E 17:02
PROVIDERS: ADMIT Neuromusculoskeletal Medicine & OMM; ATTEND Neuromusculoskeletal Medicine & OMM
PROC: HZ42ZZZ Group Counseling for Substance Abuse Treatment, Cognitive-Behavioral (ICD-10-PCS; principal; 2019-02-13)
DX: F14.20 Cocaine dependence, uncomplicated (principal); F12.20 Cannabis dependence, uncomplicated; F17.213 Nicotine dependence, cigarettes, with withdrawal; F19.280 Other psychoactive substance dependence with psychoactive substance-induced anxiety disorder; F19.282 Other psychoactive substance dependence with psychoactive substance-induced sleep disorder; F33.1 Major depressive disorder, recurrent, moderate; F43.10 Post-traumatic stress disorder, unspecified; K21.9 Gastro-esophageal reflux disease without esophagitis; D64.9 Anemia, unspecified; R19.7 Diarrhea, unspecified; R76.11 Nonspecific reaction to tuberculin skin test without active tuberculosis; Z87.09 Personal history of other diseases of the respiratory system; Z51.81 Encounter for therapeutic drug level monitoring; Z98.84 Bariatric surgery status; Z59.0 Homelessness
CPT/HCPCS: 36415; 80053; 81003; 85027; 86593